=== PATIENT | male | born 1950 | race Two or more races ===

== ENCOUNTER 2017-04-21 23:36 | Emergency (ER) | payer OTHER ==
[~2017-04-21] VITALS: Ht 170.2 cm; Wt 79.8 kg
--- NOTE | 2017-04-21 23:58 | Emergency Room Report ---
History of Present Illness General Chief Complaint: General Complaint Source: Patient, Family Member Present Illness HPI The patient presents with dizziness for 2 days. He's also was told he has the stomach flu with vomiting. He has an ileostomy from ulcerative colitis and so he can tell he has diarrhea or not. No change in his stool. Denies any fevers. He feels unsteady on his feet. He's had a stroke and is concerned about whether this is happening again. He is supposed to be taking blood thinners but because of prolonged bleeding he stopped taking them. His MD prescribed Azithromycin for the "flu" and possibly due to slight cough. No sore throat. No chest pain, palpitations, bleeding. The prior stroke occurred when he was undergoing an operation and involved the right visual cortex. There is a field cut intensity his left wrist. He denies any headache. No recent change in vision. No joint pain, rashes, dysuria. He feels dehydrated. Anxious. Taking metformin. States glucose has been controlled. Allergies: Coded Allergies: No Known Allergies (Unverified , 04/21/17) Patient History Past Medical History: see triage record, DM, CVA/TIA, other - ulcerative colitis Social History: Denies: smoking Social History Narrative live by self - brother here Reviewed Nursing Documentation: PMH: Agreed, PSxH: Agreed Nursing Documentation-PMH Hx Diabetes: Yes Review of Systems All Other Systems: negative except mentioned in HPI Physical Exam Vital Signs Date Time Temp Pulse Resp B/P (MAP) Pulse Ox O2 Delivery O2 Flow Rate FiO2 04/21/17 23:43 99.9 77 18 112/54 98 Room Air Sp02 EP Interpretation: reviewed, normal General Appearance: well appearing, no apparent distress, GCS 15 Head: normocephalic Eyes: bilateral eye normal inspection, bilateral eye PERRL, bilateral eye EOMI ENT: hearing grossly normal, moist mucus membranes Neck: supple Respiratory: lungs clear, normal breath sounds Cardiovascular #1: regular rate, rhythm Cardiovascular #2: 2+ radial (R) Gastrointestinal: normal inspection, normal bowel sounds, non tender, no mass, non-distended Musculoskeletal: back normal, gait/station normal, normal range of motion Neurologic: alert, oriented x3, guideman III-XII nml as tested, motor strength/tone normal, DTRs symmetric, sensory intact, cerebellar normal, normal gait, speech normal, other - homonimous hemianopsia Psychiatric: anxious Skin: normal inspection, warm/dry Medical Decision Making Diagnostic Impression: Primary Impression: Discoordination Additional Impressions: Possible stroke Dehydration Adverse reaction to azithromycin ER Course Patient presents with discoordination and vomiting. DDx: cerebellar process, labyrinthitis, viral syndrome, reaction to medication, electrolyte abnormalities , dehydration amongst others. Complicated patient with co-morbidities. Needs CT, EKG, labs. Treatment with IV hydration, zofran and ativan. EKG without injury. CXR R atelectasis. Labs unremarkable (slight anemia). CT with old R occiptal lobe stroke - cannot exclude acute process. The patient states he feels worse. He has a dry mouth at this time. He also has more nausea. He still feels unsteady on his feet. We will admit to the hospital for further neurologic observation and evaluation with possible MRI. Contact Dr. Gifford for admission. Patient insists on leaving. Told risk of . He refuses to go to [facility]. Discussed with his brother also. AMA. Patient told to stop azithromycin and continue zofran. Laboratory Tests Test 04/22/17 00:30 White Blood Count 6.8 K/UL (4.8-10.8) Red Blood Count 4.03 M/UL (4.70-6.10) L Hemoglobin 11.3 G/DL (14.2-18.0) L Hematocrit 34.7 % (42.0-52.0) L Mean Corpuscular Volume 86 FL (80-99) Mean Corpuscular Hemoglobin 28.0 PG (27.0-31.0) Mean Corpuscular Hemoglobin Concent 32.6 G/DL (32.0-36.0) Red Cell Distribution Width 12.3 % (11.6-14.8) Platelet Count 204 K/UL (150-450) Mean Platelet Volume 6.4 FL (6.5-10.1) L Neutrophils (%) (Auto) 60.5 % (45.0-75.0) Lymphocytes (%) (Auto) 29.3 % (20.0-45.0) Monocytes (%) (Auto) 5.8 % (1.0-10.0) Eosinophils (%) (Auto) 3.8 % (0.0-3.0) H Basophils (%) (Auto) 0.7 % (0.0-2.0) Prothrombin Time 9.8 SEC (9.30-11.50) Prothrombin Time INR 0.9 (0.9-1.1) PTT 29 SEC (23-33) Urine Color Pale yellow Urine Appearance Clear Urine pH 5 (4.5-8.0) Urine Specific [place] 1.015 (1.005-1.035) Urine Protein Negative (NEGATIVE) Urine Glucose (UA) Negative (NEGATIVE) Urine Ketones Negative (NEGATIVE) Urine Occult Blood 1+ (NEGATIVE) H Urine Nitrite Negative (NEGATIVE) Urine Bilirubin Negative (NEGATIVE) Urine Urobilinogen Normal MG/DL (0.0-1.0) Urine Leukocyte Esterase Negative (NEGATIVE) Urine RBC 2-4 /HPF (0 - 0) H Urine WBC 0-2 /HPF (0 - 0) Urine Squamous Epithelial Cells Occasional /LPF Urine Bacteria Occasional /HPF (NONE) Sodium Level 138 MMOL/L (136-145) Potassium Level 4.3 MMOL/L (3.5-5.1) Chloride Level 103 MMOL/L (98-107) Carbon Dioxide Level 28 MMOL/L (21-32) Anion Gap 7 mmol/L (5-15) Blood Urea Nitrogen 11 mg/dL (7-18) Creatinine 1.2 MG/DL (0.55-1.30) Estimate Glomerular Filtration Rate > 60 mL/min (>60) Glucose Level 125 MG/DL (74-106) H Calcium Level 8.2 MG/DL (8.5-10.1) L Total Bilirubin 0.3 MG/DL (0.2-1.0) Aspartate Amino Transferase (AST) 19 U/L (15-37) Alanine Aminotransferase (ALT) 36 U/L (12-78) Alkaline Phosphatase 66 U/L (46-116) Total Creatine Kinase 112 U/L (26-308) Troponin I 0.017 ng/mL (0.000-0.056) Total Protein 6.8 G/DL (6.4-8.2) Albumin 3.3 G/DL (3.4-5.0) L Globulin 3.5 g/dL Albumin/Globulin Ratio 0.9 (1.0-2.7) L Lipase 113 U/L (73-393) EKG Diagnostic Results Rate: normal Rhythm: NSR ST Segments: no acute changes Rhythm Strip Diag. Results EP Interpretation: yes Rhythm: NSR, no PVC's, no ectopy Chest X-Ray Diagnostic Results Chest X-Ray Diagnostic Results : Chest X-Ray Ordered: Yes # of Views/Limited/Complete: 1 View Indication: Other Interpretation: no effusion, no pneumothorax, other - R atelectasis Impression: Other Electronically Signed by: Electronically signed by Moshe Moura MD CT/MRI/US Diagnostic Results CT/MRI/US Diagnostic Results : Imaging Test Ordered: Head Impression No definite acute intracranial abnormality including no clue acute bleed midline shift mass effect or hydrocephalus. Right occipital lobe encephalomalacia consistent with a remote infarct. No identifiable acute or recent territorial infarct which may initially be (by CT scan. Last Vital Signs Date Time Temp Pulse Resp B/P (MAP) Pulse Ox O2 Delivery O2 Flow Rate FiO2 04/22/17 08:50 99.1 87 17 115/64 99 Room Air Status: improved Disposition: AGAINST MEDICAL ADVICE Condition: Serious Moshe Moura M.D. Apr 21, 2017 23:58
[2017-04-22 01:11] LABS: APPEARANCE,URINE CLEAR; BASOPHILS % (AUTO) 0.7 % (0.0-2.0); EOSINOPHILS % (AUTO) 3.8 % (0.0-3.0); KETONES,URINE NEGATIVE (NEGATIVE); LEUKOCYTE ESTERASE ,URINE NEGATIVE (NEGATIVE); LYMPHOCYTES % (AUTO) 29.3 % (20.0-45.0); MEAN CORPUSCULAR HGB CONC 32.6 G/DL (32.0-36.0); MEAN CORPUSCULAR VOLUME 86 FL (80-99); MEAN PLATELET VOLUME 6.4 FL (6.5-10.1); MONOCYTES % (AUTO) 5.8 % (1.0-10.0); NEUTROPHILS % (AUTO) 60.5 % (45.0-75.0); NITRITE,URINE NEGATIVE (NEGATIVE); PH,URINE 5 (4.5-8.0); PLATELET COUNT 204 K/UL (150-450); PROTEIN,URINE NEGATIVE (NEGATIVE); RED BLOOD COUNT 4.03 M/UL (4.70-6.10); RED CELL DISTRIBUTION WIDTH 12.3 % (11.6-14.8); UROBILINOGEN,URINE NORMAL MG/DL (0.0-1.0); WHITE BLOOD COUNT 6.8 K/UL (4.8-10.8)
[2017-04-22 01:17] LABS: BACTERIA,URINE OCCASIONAL /HPF; SQUAMOUS EPITHELIAL CELL,UR OCCASIONAL /LPF (NONE/OCC); WBC,URINE 0-2 /HPF (0 - 0)
[2017-04-22 01:24] LABS: INR 0.9 (0.9-1.1); PROTHROMBIN TIME 9.8 SEC (9.30-11.50)
[2017-04-22 01:27] LABS: ALANINE AMINOTRANSFERASE 36 U/L (12-78); ALBUMIN/GLOBULIN RATIO 0.9 (1.0-2.7); ANION GAP 7 mmol/L (5-15); ASPARTATE AMINO TRANSFERASE 19 U/L (15-37); CALCIUM 8.2 MG/DL (8.5-10.1); CARBON DIOXIDE 28 MMOL/L (21-32); CHLORIDE 103 MMOL/L (98-107); CREATININE 1.2 MG/DL (0.55-1.30); GLOMERULAR FILTRATION RATE > 60 mL/min (>60); LIPASE 113 U/L (73-393); POTASSIUM 4.3 MMOL/L (3.5-5.1); SODIUM 138 MMOL/L (136-145); TOTAL PROTEIN 6.8 G/DL (6.4-8.2)
[2017-04-22 03:14] VITALS: BP 104/57
[2017-04-22] MEDS ORDERED: LORazepam Inj 2mg/ml 1ml IV ONE (04:45)
[2017-04-22 06:37] VITALS: BP 110/60
[2017-04-22] MEDS ORDERED: LIPITOR80 MG ORAL (08:40)
[2017-04-22] MEDS ORDERED: NEXIUM20 MG ORAL (08:40)
[2017-04-22] MEDS ORDERED: METFORMIN HCL500 M1 ORAL (08:40)
[2017-04-22 08:41] VITALS: BP 115/64
[2017-04-22 08:50] VITALS: BP 115/64
[2017-04-22] MEDS ORDERED: Miralax 17gm pkt ORAL PRN (09:00)
[2017-04-22] MEDS ORDERED: Albuterol/Ipratropium 3ml neb HHN PRN (09:00)
[2017-04-22] MEDS ORDERED: Mylanta II UD 30ml ORAL PRN (09:00)
[2017-04-22] MEDS ORDERED: Morphine Sulfate 2mg/ml Inj IVP PRN (09:00)
[2017-04-22] MEDS ORDERED: Heparin 5000 units/ml inj SUBQ SCH (09:00)
[2017-04-22] MEDS ORDERED: Nitroglycerin Subl 0.4mg tab SL PRN (09:00)
[2017-04-22] MEDS ORDERED: LORazepam Inj 2mg/ml 1ml IV PRN (09:00)
--- NOTE | 2017-04-22 10:36 | Diagnostic Imaging Report ---
Indication: Dizziness Technique: Contiguous 5 mm thick transaxial imaging of the head obtained in a Siemens Sensation [address] scanner. Soft tissue and bone windows generated. Total Dose length Product (DLP): [address] Dose Index Volume (CTDIvol): 70.38, 0.15 mGy Comparison: none Findings: There is low-attenuation volume loss right occipital lobe consistent with encephalomalacia. This is probably on the basis of an old infarct. The size and configuration of the cortical sulci, basal cisterns, and ventricles are within normal limits for age. There is no mass effect, midline shift, or edema identified. There is no evidence of acute hemorrhage or abnormal intra-axial or extra-axial fluid collections. The bones and soft tissues are unremarkable. The goal thickening noted within the paranasal sinuses as visualized. Mastoids are clear. Impression: No mass effect, edema or acute bleed. Old infarct right occipital lobe Sinusitis. [facility] has communicated the preliminary results to the Emergency Department. Their findings are largely concordant with this report. The CT scanner at [facility] is accredited by the [employer] and the scans are performed using dose optimization techniques as appropriate to a performed exam including Automatic Exposure control.
--- NOTE | 2017-04-22 10:50 | Diagnostic Imaging Report ---
Indication: Dyspnea Comparison: None A single view chest radiograph was obtained. Findings: Lung volumes are low. Suggestion of minimal basilar atelectasis. Accounting for this heart size is probably normal. The bones are unremarkable. Impression: Basilar atelectasis suspected
--- NOTE | 2017-04-23 17:26 | Cardiology Report ---
APPROVED REPORT EKG Measurement Heart [id number] Normal sinus rhythm Normal ECG
== END 2017-04-22 09:07 | disposition left against medical advice (07) ==
LOC: EMR 23:59 → UNDOADMIN 04-22 07:31 → 2E 04-22 07:31 → EDBEDREQ 04-22 07:55
DX: R42 Dizziness and giddiness (principal); E86.0 Dehydration; T36.95XA Adverse effect of unspecified systemic antibiotic, initial encounter; Y92.9 Unspecified place or not applicable; E11.9 Type 2 diabetes mellitus without complications
CPT/HCPCS: 36415; 70450; 71010; 80053; 81003; 82550; 83690; 84484; 85025; 85610; 85730; 93005; 99285; J2405